=== PATIENT | male | born 1950 | race Caucasian/White ===

== ENCOUNTER 2017-09-11 18:38 | Emergency (ER) | payer MEDICARE ==
[~2017-09-11 18:38] MED LIST: EMPA25TA PO; LISI-613 PO; METF500T6 PO; PIOG30TA70 PO
[2017-09-11 19:44] LABS: BASOPHILS % (AUTO) 1.3 % (0.0-5.0); EOSINOPHILS % (AUTO) 7.2 % (0.0-8.0); LYMPHOCYTES % (AUTO) 30.4 % (21.0-51.0); MEAN CORPUSCULAR HEMOGLOBIN 31.7 pg (27.0-33.0); MEAN CORPUSCULAR HGB CONC 35.4 g/dL (32.0-36.0); MEAN CORPUSCULAR VOLUME 89.6 fL (79-99); MONOCYTES % (AUTO) 7.7 % (3.0-13.0); NEUTROPHILS % (AUTO) 53.4 % (40.0-77.0); PLATELET COUNT (AUTO) 322 K/uL (130-400); RED BLOOD CELL COUNT(AUTO) 4.13 MIL/uL (4.50-6.20); RED CELL DISTRIBUTION WIDTH 14.2 % (11.0-15.5); WHITE BLOOD COUNT (AUTO) 8.3 K/uL (4.8-10.8)
[2017-09-11 19:58] LABS: CREATININE 0.8 mg/dL (0.5-1.5)
[2017-09-11 20:33] LABS: ALBUMIN 3.4 g/dL (3.5-5.0); BILIRUBIN,TOTAL 0.3 mg/dL (0.2-1.0); HIGH SENSITIVITY CRP 69.93 mg/L (0.0-3.0); TOTAL PROTEIN, SERUM 8.6 g/dL (6.0-8.3)
[2017-09-11] MEDS ORDERED: KETOROLAC TROMETHAMINE 30MG/ML ONE (20:35)
[2017-09-11 20:48] LABS: ERYTHROCYTE SEDIMENTATION RATE 79 MM/HR (0-15)
== END 2017-09-11 21:30 | disposition home or self-care (01) ==
LOC: EDH 18:38
DX: L03.114 Cellulitis of left upper limb (principal); E11.9 Type 2 diabetes mellitus without complications; I10 Essential (primary) hypertension; Z88.2 Allergy status to sulfonamides; Z98.890 Other specified postprocedural states; Z87.891 Personal history of nicotine dependence
CPT/HCPCS: 36415; 73110; 80053; 84550; 85025; 85651; 86141; 87040; 96372; 99285; J1885